=== PATIENT | male | born 1995 | race Caucasian/White ===

== ENCOUNTER 2019-09-09 08:09 | Emergency (ER) | payer BC ==
[~2019-09-09] VITALS: Ht 175.3 cm; Wt 81.7 kg
[2019-09-09] MEDS ORDERED: IBUP800 PO (09:33)
== END 2019-09-09 09:50 | disposition home or self-care (01) ==
LOC: ER 08:09
DX: M25.431 Effusion, right wrist (principal)
CPT/HCPCS: 29125; 73110; 99283-25; L3917

== ENCOUNTER 2025-03-29 18:14 | Emergency (ER) | payer BC ==
[~2025-03-29] VITALS: Ht 175.3 cm; Wt 81.7 kg
[~2025-03-29 18:14] MED LIST: IBUP800 PO
[2025-03-29] MEDS ORDERED: Morphine Sulfate 4 MG/1 ML Injection IV ONE ×2 (18:20→19:30)
[2025-03-29] MEDS ORDERED: Diphth,Pertuss(Acell),Tet Vac 0.5 ML VIAL IM ONE (19:30)
[2025-03-29] MEDS ORDERED: HYDR1TAB94 PO (20:32)
[2025-03-29] MEDS ORDERED: CEPH500 PO (20:32)
[2025-03-29 22:00] VITALS: BP 150/77
[2025-03-29] MEDS ORDERED: RX Prepack 6 Tabs Oxycodone 5mg UD ONE (22:35)
== END 2025-03-29 22:44 | disposition home or self-care (01) ==
LOC: ER 18:14
DX: S91.101A Unspecified open wound of right great toe without damage to nail, initial encounter (principal); W01.0XXA Fall on same level from slipping, tripping and stumbling without subsequent striking against object, initial encounter
CPT/HCPCS: 64450; 73620; 90471; 90715; 96374-59; 96376-59; 99283-25; A9270; J2270